=== PATIENT | female | born 1960 | race African-American/Black ===

== ENCOUNTER 2020-06-16 04:58 | Day surgery (SDC) | payer OTHER ==
[2020-06-15 11:56] VITALS: BMI 34.8
[2020-06-16 12:38] VITALS: TEMP 97.5
[2020-06-16 13:37] VITALS: BP 139/85; PULSE 51
== END 2020-06-16 13:47 | disposition home or self-care (01) ==
LOC: JASU-ENDO 04:58
PROVIDERS: ATTEND Internal Medicine Gastroenterology
PROC: 0DBL8ZX Excision of Transverse Colon, Via Natural or Artificial Opening Endoscopic, Diagnostic (ICD-10-PCS; 2020-06-16)
PROC: 0DBN8ZX Excision of Sigmoid Colon, Via Natural or Artificial Opening Endoscopic, Diagnostic (ICD-10-PCS; principal; 2020-06-16 12:00)
DX: Z12.11 Encounter for screening for malignant neoplasm of colon (principal); Z86.010 Personal history of colon polyps; D12.3 Benign neoplasm of transverse colon; D17.5 Benign lipomatous neoplasm of intra-abdominal organs; K59.89 Other specified functional intestinal disorders; K63.5 Polyp of colon
CPT/HCPCS: 88305-TC

== ENCOUNTER → 2023-09-01 | Day surgery (SDC) | payer OTHER | END | disposition home or self-care (01) | LOC: JRADIR 10:31 | PROVIDERS: ATTEND Internal Medicine Endocrinology, Diabetes & Metabolism | PROC: 0G9G3ZX Drainage of Left Thyroid Gland Lobe, Percutaneous Approach, Diagnostic (ICD-10-PCS; principal; 2023-09-01) | DX: E04.1 Nontoxic single thyroid nodule (principal) | CPT/HCPCS: 36415; 76942; 84439; 84443; 86376; 88173; 88305-TC ==